=== PATIENT | female | born 1980 | race Caucasian/White ===

== ENCOUNTER 2018-05-10 10:24 | Observation (INO) | payer OTHER ==
[~2018-05-10] VITALS: Ht 172.7 cm; Wt 90.7 kg
--- OUTSIDE RECORDS SUMMARY | 2018-05-10 10:27 | XMS REPORT ---
Author Author [facility] Address Unknown Phone Unavailable Care Team Providers Care Zoo Caretaker Name Role Phone Unavailable Unavailable Payers Payer Name Policy Type Policy Number Effective Date Expiration Date Problems This patient has no known problems. Allergies, Adverse Reactions, Alerts Allergy Name Allergy Type Status Severity Reaction(s) Onset Date Inactive Date Treating Clinician Comments No Known Allergies DA Active U 2018-05-08 00:00:00 Medications This patient has no known medications. Results Test Description Test Time Test Comments Text Results Atomic Results Result Comments D-DIMER 2018-05-08 14:16:00 D-DIMER (test code=DDIMER) 403.00 ng/mLFEU 0-500 Clinical Cut-off value for D- Dimer is 500 ng/mL FEU. Comment: The [employer] D-Dimer assay is intended for use asan aid in the diagnosis of venous thromboembolism (VTE)[deep vein thrombosis (DVT) or pulmonary embolism (PE)].The measurement of D-Dimer should not be used as an aid inthe diagnosis of VTE, in patient with: -Therapeutic dose anticoagulant therapy for >24 hours -Fibrinolytic therapy within previous 7 days -Trauma or surgery within previous 4 weeks -Disseminated malignancies - Aortic aneurysm -Sepsis, severe infections, pneumonia, severe skin infections -Liver cirrhosis - B-TYPE NATRIURETIC [id number] 13:19:00* Test Item Value Reference Range Comments B-TYPE NATRIURETIC PEPTIDE (test code=BNP) 149.77 pgram/mL 0-100 BASIC METABOLIC [id number] 12:56:00* Test Item Value Reference Range Comments SODIUM (test code=NA) 139 mmol/L 136-145 POTASSIUM (test code=K) 4.0 mmol/L 3.5-5.1 CHLORIDE (test code=CL) 108.0 mmol/L 98-107 CARBON DIOXIDE (test code=CO2) 24.0 mmol/L 21-32 ANION GAP (test code=GAP) 11.0 10-20 GLUCOSE (test code=GLU) 89 mg/dL 74-106 BLOOD UREA NITROGEN (test code=BUN) 11 mg/dL 7-18 GLOMERULAR FILTRATION RATE (test code=GFR) > 60 mL/min >=60 Estimated GFR by using Modified MDRD formula.Chronic kidney disease is defined as either kidney damageor GFR <60 mL/min/1.73 m2 for >3 months. CREATININE (test code=CREAT) 0.80 mg/dL 0.55-1.02 Note change in reference range due to change in reagent. BUN/CREATININE RATIO (test code=BUN/CREA) 13.5 10-20 CALCIUM (test code=CA) 8.6 mg/dL 8.5-10.1 HEPATIC FUNCTION [id number] 12:56:00* Test Item Value Reference Range Comments TOTAL PROTEIN (test code=PROT) 7.5 gram/dL 6.4-8.2 ALBUMIN (test code=ALB) 3.3 g/dL 3.4-5.0 GLOBULIN (test code=GLOB) 4.2 gram/dL 2.7-4.2 ALBUMIN/GLOBULIN RATIO (test code=A/G) 0.8 0.75-1.50 BILIRUBIN TOTAL (test code=BILT) 0.20 mg/dL 0.0-1.0 BILIRUBIN DIRECT (test code=BILD) 0.06 mg/dL 0.0-0.20 SGOT/AST (test code=AST) 12 IUnit/L 15-37 SGPT/ALT (test code=ALT) 23 IUnit/L 12-78 ALKALINE PHOSPHATASE TOTAL (test code=ALKP) 72 IUnit/L 45-117 Note change in reference range due to change in reagent. HCG SERUM [id number] 12:56:00* Test Item Value Reference Range Comments HCG SERUM QUAL (test code=HCGQL) NEGATIVE NEGATIVE This HCGQL test is NOT applicable for MALE patients.Check with nurse about probable order error.If Tumor Marker Test needed, nurse should order test "HCGTU"(Test #550.82376) [id number] 12:56:00* Test Item Value Reference Range Comments TROPONIN-I (test code=TROPI) <0.015 ng/mL 0-0.045 BASIC METABOLIC [id number] 12:46:00* Test Item Value Reference Range Comments SODIUM (test code=NA) mmol/L 136-145 POTASSIUM (test code=K) mmol/L 3.5-5.1 CHLORIDE (test code=CL) mmol/L 98-107 CARBON DIOXIDE (test code=CO2) mmol/L 21-32 ANION GAP (test code=GAP) 10-20 GLUCOSE (test code=GLU) mg/dL 74-106 BLOOD UREA NITROGEN (test code=BUN) mg/dL 7-18 GLOMERULAR FILTRATION RATE (test code=GFR) mL/min >=60 CREATININE (test code=CREAT) mg/dL 0.55-1.02 BUN/CREATININE RATIO (test code=BUN/CREA) 10-20 CALCIUM (test code=CA) mg/dL 8.5-10.1 HEPATIC FUNCTION [id number] 12:46:00* Test Item Value Reference Range Comments TOTAL PROTEIN (test code=PROT) gram/dL 6.4-8.2 ALBUMIN (test code=ALB) g/dL 3.4-5.0 GLOBULIN (test code=GLOB) gram/dL 2.7-4.2 ALBUMIN/GLOBULIN RATIO (test code=A/G) 0.75-1.50 BILIRUBIN TOTAL (test code=BILT) mg/dL 0.0-1.0 BILIRUBIN DIRECT (test code=BILD) mg/dL 0.0-0.20 SGOT/AST (test code=AST) IUnit/L 15-37 SGPT/ALT (test code=ALT) IUnit/L 12-78 ALKALINE PHOSPHATASE TOTAL (test code=ALKP) IUnit/L 45-117 HCG SERUM [id number] 12:46:00* Test Item Value Reference Range Comments HCG SERUM QUAL (test code=HCGQL) NEGATIVE NEGATIVE This HCGQL test is NOT applicable for MALE patients.Check with nurse about probable order error.If Tumor Marker Test needed, nurse should order test "HCGTU"(Test #550.51310) [id number] 12:46:00* Test Item Value Reference Range Comments TROPONIN-I (test code=TROPI) ng/mL 0-0.045 BASIC METABOLIC [id number] 12:46:00* Test Item Value Reference Range Comments SODIUM (test code=NA) 139 mmol/L 136-145 POTASSIUM (test code=K) 4.0 mmol/L 3.5-5.1 CHLORIDE (test code=CL) 108.0 mmol/L 98-107 CARBON DIOXIDE (test code=CO2) mmol/L 21-32 ANION GAP (test code=GAP) 10-20 GLUCOSE (test code=GLU) mg/dL 74-106 BLOOD UREA NITROGEN (test code=BUN) mg/dL 7-18 GLOMERULAR FILTRATION RATE (test code=GFR) mL/min >=60 CREATININE (test code=CREAT) mg/dL 0.55-1.02 BUN/CREATININE RATIO (test code=BUN/CREA) 10-20 CALCIUM (test code=CA) mg/dL 8.5-10.1 HEPATIC FUNCTION [id number] 12:46:00* Test Item Value Reference Range Comments TOTAL PROTEIN (test code=PROT) gram/dL 6.4-8.2 ALBUMIN (test code=ALB) g/dL 3.4-5.0 GLOBULIN (test code=GLOB) gram/dL 2.7-4.2 ALBUMIN/GLOBULIN RATIO (test code=A/G) 0.75-1.50 BILIRUBIN TOTAL (test code=BILT) mg/dL 0.0-1.0 BILIRUBIN DIRECT (test code=BILD) mg/dL 0.0-0.20 SGOT/AST (test code=AST) IUnit/L 15-37 SGPT/ALT (test code=ALT) IUnit/L 12-78 ALKALINE PHOSPHATASE TOTAL (test code=ALKP) IUnit/L 45-117 HCG SERUM [id number] 12:46:00* Test Item Value Reference Range Comments HCG SERUM QUAL (test code=HCGQL) NEGATIVE NEGATIVE This HCGQL test is NOT applicable for MALE patients.Check with nurse about probable order error.If Tumor Marker Test needed, nurse should order test "HCGTU"(Test #550.56775) [id number] 12:46:00* Test Item Value Reference Range Comments TROPONIN-I (test code=TROPI) ng/mL 0-0.045 CBC W/O [id number] 12:43:00* Test Item Value Reference Range Comments WHITE BLOOD CELL (test code=WBC) 11.3 K/mm3 4.5-12.5 RED BLOOD CELL (test code=RBC) 4.89 mill/mm3 3.7-5.2 HEMOGLOBIN (test code=HGB) 12.8 gram/dL 11.5-15.5 HEMATOCRIT (test code=HCT) 42.2 % 36.0-46.0 MEAN CELL VOLUME (test code=MCV) 86.3 fL 80-98 MEAN CELL HGB (test code=MCH) 26.2 picogram 27.0-33.0 MEAN CELL HGB CONCETRATION (test code=MCHC) 30.3 gram/dL 33.0-36.0 RED CELL DISTRIBUTION WIDTH (test code=RDW) 14.2 % 11.6-16.2 PLATELET COUNT (test code=PLT) 363 K/mm3 150-450 MEAN PLATELET VOLUME (test code=MPV) 10.9 fL 6.7-11.0 TROPONIN I [id number] 12:26:00* Test Item Value Reference Range Comments TROPONIN I RAPID (test code=TROPIRAP) 0.00 ng/mL <0.08 Please Note New Reference Range 0.00-0.079 ng/mL - Negative>or=0.08 ng/mL - Positive The use of serial sampling and testing protocol is arecommended practice.An elevated troponin level alone is often not sufficient fordiagnosis of myocardial infarction. Troponin results obtained by different assays may vary.Evaluation of the extent of myocardial damage based onincrease of troponin would be valid only if similarmethodology is used. - XR CHEST 1 [id number] 11:51:00 FAX: Ban Fontana MD [phone] [place]: St: REG Name: NOLA WEISS [facility] : [birth year] Age/S: 37/F [address] [facility] Unit #: [id number] Loc: [place] [address] Phys: Ban Fontana MD Acct: [id number] Dis Date: Status: REG ER PHONE #: [phone] Exam Date: 05/08/2018 1148 FAX #: [phone] Reason: CHEST PAIN EXAMS: CPT CODE: [id number] XR CHEST 1 V 50615 HISTORY: Chest pain. COMPARISON: None available. No acute infiltrates, effusion or con gestion is noted. Suboptimal inspiration. Dependent changes. Mild cardiomegaly. IMPRESSION: No acute i nfiltrates, effusion or congestion. at 1151 Reported and signed by: Nicholas Mariscal M.D. CC: Ban Fontana MD Technologist: Rigoberto Diaz RT(R) Trnscrd Date/Time/By: 05/08/2018 (5241) : By: [email or web address] Orig Print D/T: S: 05/08/2018 (8035) PAGE 1 Signed Report
[2018-05-10] MEDS ORDERED: SODIUM CHLORIDE 0.9% 1000ML 1,000 ML IV STA (10:44)
[2018-05-10 11:15] LABS: BASOPHILS % 0.3 % (0.0-1.0); EOSINOPHILS # (AUTO) 0.1 (0.0-0.4); EOSINOPHILS % 1.1 % (0.0-6.0); HEMATOCRIT 42.7 % (34.2-44.1); HEMOGLOBIN 14.5 g/dL (12.0-16.0); LYMPHOCYTES # (AUTO) 1.5 (1.0-3.2); LYMPHOCYTES % 12.5 % (18.0-39.1); MEAN CORPUSCULAR HEMOGLOBIN 27.3 pg (28-32); MEAN CORPUSCULAR VOLUME 80.4 fL (81-99); MONOCYTES # (AUTO) 0.5 (0.2-0.8); MONOCYTES % 3.8 % (4.4-11.3); NEUTROPHILS % 81.9 % (38.7-80.0); PLATELET COUNT 415 x10e3/uL (140-360); RED BLOOD COUNT 5.31 x10e6/uL (3.6-5.1); RED CELL DISTRIBUTION WIDTH 14.7 % (11.7-14.4)
[2018-05-10] MEDS ORDERED: ONDANSETRON HCL INJ 2MG/ML 2ML 2 MG/ML VIAL IV ONE (11:30)
[2018-05-10] MEDS ORDERED: MORPHINE SULFATE INJ 4 MG/ML INJ 1ML IV ONE (11:30)
[2018-05-10 11:54] LABS: CLARITY,URINE CLOUDY (CLEAR); COLOR,URINE YELLOW (YELLOW); KETONES,URINE NEGATIVE (NEGATIVE); LEUKOCYTE ESTERASE ,URINE NEGATIVE (NEGATIVE); NITRITE,URINE POSITIVE (NEGATIVE); PROTEIN,URINE DIPSTICK TRACE (NEGATIVE); URINE UROBILINOGEN 0.2 mg/dL (0.2 - 1)
[2018-05-10 11:55] LABS: BILIRUBIN,URINE NEGATIVE (NEGATIVE); PREGNANCY TEST, URINE NEGATIVE (NEGATIVE)
[2018-05-10 12:00] LABS: BACTERIA,URINE MANY /HPF; EPITHELIAL CELLS,URINE MANY /LPF; RBC,URINE 0-5 /HPF (0-5); WBC,URINE (MAN) 0-5 /HPF (0-5)
[2018-05-10 12:01] LABS: AMORPHOUS SEDIMENT,URINE MODERATE (FEW); MUCUS,URINE FEW (RARE)
[2018-05-10 12:36] LABS: CREATINE KINASE 92 IU/L (29-168)
[2018-05-10 12:57] LABS: ALANINE AMINOTRANSFERASE 20 IU/L (0-55); ALBUMIN 3.8 g/dL (3.5-5.0); ALBUMIN/GLOBULIN RATIO 0.9 (0.8-2.0); ALKALINE PHOSPHATASE 70 IU/L (40-150); ANION GAP 20.3 mmol/L (8-16); BLOOD UREA NITROGEN 10 mg/dL (7-26); BUN/CREATININE RATIO 12 (6-25); CALCIUM 9.3 mg/dL (8.4-10.2); CARBON DIOXIDE 18 mmol/L (22-29); CHLORIDE 104 mmol/L (98-107); CREATININE, SERUM 0.81 mg/dL (0.57-1.11); EST GLOMERULAR FILTRATION RATE > 60 ML/MIN (60-); GLUCOSE 93 mg/dL (74-118); POTASSIUM 5.3 mmol/L (3.5-5.1); SODIUM 137 mmol/L (136-145)
[2018-05-10] MEDS ORDERED: CEFTRIAXONE SOD 1 GM VIAL IV ONE (13:15)
--- NOTE | 2018-05-10 13:40 | Diagnostic Imaging Report ---
EXAM: CT Abdomen and Pelvis WITH contrast INDICATION: Pain COMPARISON: None. TECHNIQUE: Abdomen and Pelvis was scanned utilizing a multidetector helical scanner after administration of IV contrast. Coronal and sagittal reformations were obtained. IV CONTRAST: 100 mL [id number]-370 COMPLICATIONS: None RADIATION DOSE: Total DLP:861 mGy*cm Estimated effective dose: (DLP x 0.015 x size factor) mSv CTDIvol has been reviewed. It is below the limits set by the Radiation Protocol Committee (RPC). Appropriate CT dose reduction techniques were utilized. FINDINGS: Abdomen: Lung Bases: No acute findings. Solid Organs: Several calcified gallstones. Liver, adrenals, kidneys, spleen, and pancreas are unremarkable. Upper GI Tract: Decompressed stomach limits evaluation. No small bowel obstructive changes. Vascularity: No significant vascular calcifications aorta. Lymph Nodes: No suspicious adenopathy. Other: None. Pelvis: Bladder: Unremarkable. Other: Uterus/adnexa grossly unremarkable within limitations of CT evaluation. Colon: No acute colonic findings. Bones: Mild L5-S1 degenerative disc changes. IMPRESSION: 1. Multiple calcified gallstones. While CT evaluation of the gallbladder is suboptimal to ultrasound, there appears to be minimal pericholecystic stranding raising question of cholecystitis. Clinical/laboratory correlation recommended. Signed by: Dr. Ambrose Garcia MD on 05/10/2018 1:37 PM
[2018-05-10] MEDS ORDERED: CEFTRIAXONE SOD 1 GM/NS 50 ML 50 ML IV ONE ×2 (14:00→15:00)
[2018-05-10] MEDS ORDERED: LIDOCAINE VISC 2% SOLN 15 ML UDC PO ONE (14:30)
[2018-05-10] MEDS ORDERED: MAGNESIUM/ALUMINUM/SIMETHICONE 30 ML UDC PO ONE (14:30)
[2018-05-10] MEDS ORDERED: PANTOPRAZOLE 40 MG 10ML VIAL IV ONE (14:30)
[2018-05-10] MEDS: BELLADONNA ALK/PHENOBARBITAL 5 ML UDC PO SCH ×2 (15:35→20:58)
[2018-05-10] MEDS: ONDANSETRON HCL INJ 2MG/ML 2ML 2 MG/ML VIAL IV PRN ×2 (15:38→20:00)
[2018-05-10] MEDS: MORPHINE SULFATE INJ 4 MG/ML INJ 1ML IV PRN ×2 (15:40→20:00)
[2018-05-10] MEDS ORDERED: FENTANYL CITRATE/PF 100MCG/2 ML INJ IV ONE (17:15)
[2018-05-10] MEDS ORDERED: VALSARTAN-HCTZ PO (17:34)
--- NOTE | 2018-05-10 18:10 | NUR ---
RECD PT FROM ER VIA W/C AAOX3 SL TO RT AC PATENT,PAIN LEVEL 3 .
[2018-05-10] MEDS ORDERED: [UNRECOGNIZED DRUG - OTHER] (18:26)
[2018-05-10] MEDS ORDERED: SODIUM CHLORIDE 0.9% 50ML 50 ML ONE (18:41)
[2018-05-10] MEDS ORDERED: IOPAMIDOL 370 MG/ML 200 ML INFUS..BTL INJ ONE (18:41)
[2018-05-10] MEDS: SODIUM CHLORIDE 0.9% 1000ML 1,000 ML IV SCH (19:27)
[2018-05-10 19:30] VITALS: BP 164/69
--- NOTE | 2018-05-10 19:30 | NUR ---
patient recieved awake, alert, lying quietly in bed. vss. ivf continue to infuse without difficulty. admit assessment complete at this time. patient instructed to call for assistance when needed.
[2018-05-10 20:00] VITALS: BP 164/69
--- NOTE | 2018-05-10 20:00 | NUR ---
patient medicated with morphine 4 mg and zofran 4 mg ivp for c/o upper abd pain 10/10. will continue to monitor.
[2018-05-11] VITALS (7 sets, daily range): BP systolic 121–137; BP diastolic 62–93
[2018-05-11] MEDS: MORPHINE SULFATE INJ 4 MG/ML INJ 1ML IV PRN ×6 (00:08→23:40)
[2018-05-11] MEDS: ONDANSETRON HCL INJ 2MG/ML 2ML 2 MG/ML VIAL IV PRN ×6 (00:08→23:40)
[2018-05-11] MEDS: SODIUM CHLORIDE 0.9% 1000ML 1,000 ML IV SCH ×2 (03:12→11:34)
--- NOTE | 2018-05-11 07:19 | Consultation ---
DATE OF CONSULTATION: May 11, 2018 Patient is a 37-year-old female who presents with complaints of epigastric and right upper quadrant abdominal pain that started a few days ago. She has had similar pains previously, but never this severe. She has associated nausea and vomiting. Evaluation has revealed calcified gallstones with inflammation around the gallbladder. There are no symptoms of jaundice. Patient says her pain is slightly better today. PAST MEDICAL HISTORY: Significant for hypertension for which she takes valsartan and hydrochlorothiazide. PAST SURGICAL HISTORY: The only previous surgery is section. ALLERGIES: SHE HAS NO KNOWN ALLERGIES. MEDICATIONS: As listed above. FAMILY HISTORY: Noncontributory. SOCIAL HISTORY: The patient occasionally smokes a cigarette and occasionally drinks alcohol. REVIEW OF SYSTEMS: Is as stated above. She has had no fever. No weight loss. PHYSICAL EXAMINATION GENERAL: The patient is awake, alert and in no distress. VITALS: Were normal. HEENT: Unremarkable. Sclerae are nonicteric. NECK: Supple with no masses. LUNGS: Equal breath sounds are clear bilaterally. CARDIAC: Regular rate and rhythm. Normal S1 and S2 without murmur, S3 or S4. There is no jugular venous distention. ABDOMEN: Soft. There is mild epigastric and right upper quadrant tenderness. There is no mass. There were no signs of peritonitis. No organomegaly. EXTREMITIES: No edema. Pulses were palpable. NEUROLOGIC: Intact. ASSESSMENT: A 37-year-old female with findings suggestive of acute and chronic cholecystitis and cholelithiasis. She would likely benefit from a cholecystectomy, which I will plan to schedule for today. The procedure was explained to the patient including risks, benefits and alternatives. She understands. She has had the opportunity to ask questions. She is aware of the possible need for open surgery. Thank you for asking me to see Ms. Guadalupe. Job#: [id number] WILDA
--- NOTE | 2018-05-11 07:28 | NUR ---
PATIENT SITTING UP IN BED TALKING ON THE PHONE, NO RESPIRATORY DISTRESS OBSERVED. REMAINS NPO FOR A PROCEDURE. BED IN LOWER POSITION, CALL LIGHT AT REACH.
[2018-05-11] MEDS: BELLADONNA ALK/PHENOBARBITAL 5 ML UDC PO SCH ×3 (09:00→21:41)
[2018-05-11] MEDS: CEFTRIAXONE SOD 1 GM/NS 50 ML 50 ML IV SCH (09:29)
--- NOTE | 2018-05-11 11:12 | NUR ---
CONSENT SIGNED FOR A PROCEDURE. IV FLUID IN PROGRESS. CALL LIGHT AT REACH.
--- NOTE | 2018-05-11 12:24 | NUR ---
PATIENT OFF UNIT FOR A PROCEDURE.
[2018-05-11] MEDS ORDERED: BUPIVACAINE 0.25% 30ML SDV INJ ONE (13:06)
[2018-05-11] MEDS ORDERED: MORPHINE SULFATE INJ 4 MG/ML INJ 1ML IV PRN (14:45)
[2018-05-11] MEDS ORDERED: HYDROCODONE/APAP 5MG-325MG TAB PO PRN ×2 (14:45→18:00)
[2018-05-11] MEDS ORDERED: ONDANSETRON HCL INJ 2MG/ML 2ML 2 MG/ML VIAL ONE (15:05)
[2018-05-11] MEDS ORDERED: LIDOCAINE HCL 2% LOCAL INJ 5 ML SDV VIAL INJ ONE (15:05)
[2018-05-11] MEDS ORDERED: DEXAMETHASONE SOD PHOS INJ 4 MG/ML VIAL ONE (15:05)
[2018-05-11] MEDS ORDERED: ATROPINE SULFATE 1 MG/ML VIAL ONE (15:05)
[2018-05-11] MEDS ORDERED: SEVOFLURANE INHAL SOLN 250 ML PEN BTL ONE (15:05)
[2018-05-11] MEDS ORDERED: ROCURONIUM BROMIDE 10 MG/ML 5ML VIAL ONE (15:05)
[2018-05-11] MEDS ORDERED: PROPOFOL IV EMULSION 10 MG/ML 20 ML VIAL ONE (15:05)
[2018-05-11] MEDS ORDERED: KETOROLAC TROMETHAMINE 30 MG/ML VIAL ONE (15:05)
[2018-05-11] MEDS ORDERED: NEOSTIGMINE 5 MG/5ML SYR ONE (15:05)
[2018-05-11] MEDS ORDERED: SUCCINYLCHOLINE 200 MG/10 ML SYR ONE (15:05)
--- NOTE | 2018-05-11 15:46 | NUR ---
PATIENT BACK TO UNIT FROM OR. HAD A LAPAROSCOPIC CHOLECYSTECTOMY, 4 TROCAR SITES DRY AND INTACT TO ABDOMEN. PATIENT C/O ABDOMINAL PAIN, PAIN MEDICATION GIVEN ORDERED. IN BED WITH CALL LIGHT AT REACH. FAMILY MEMBER AT BED SIDE. V/S 98.1-72-18-117/79 AND 97% ON RA.
[2018-05-11] MEDS: DEXTROSE 5%/0.45% SOD CHL 1,000 ML IV SCH (16:08)
--- NOTE | 2018-05-11 16:18 | Operative Report ---
DATE OF PROCEDURE: May 11, 2018 PREOPERATIVE DIAGNOSES 1. Acute cholecystitis. 2. Cholelithiasis. POSTOPERATIVE DIAGNOSES 1. Acute cholecystitis. 2. Cholelithiasis. PROCEDURES 1. Diagnostic laparoscopy. 2. Laparoscopic cholecystectomy. POWER DISTRIBUTION ENGINEER: None. ANESTHESIA: General endotracheal. INDICATIONS AND FINDINGS: The patient is a 37-year-old female who presented with the complaints of severe epigastric and right upper quadrant abdominal pain. Workup revealed probable acute cholecystitis with cholelithiasis. At surgery patient was found to have a gallbladder that was very distended and edematous with a large stone impacting the gallbladder neck. The cystic duct was about 3 mm in diameter. Common bile duct was about 5 mm in diameter. Liver, stomach, lower abdomen all appeared normal. TECHNIQUE: After adequate general endotracheal anesthesia, patient in supine position, the abdomen was prepped and draped in sterile fashion with ChloraPrep solution. Skin in the umbilicus was infiltrated with 1/2 percent Marcaine. Incision was made in the umbilicus. Abdominal wall was elevated, and Veress needle was introduced. Pneumoperitoneum was then created. A 10 mm trocar and cannula was then passed through the umbilical wound. Laparoscopic camera was introduced. Initial laparoscopy revealed the gallbladder very distended and edematous. Liver, stomach, lower abdomen all appeared normal. A 10 mm trocar and cannula was placed in the epigastrium, and two 5 mm trocars and cannulas were placed in the right upper quadrant. These were placed under direct vision. Gallbladder was tense, was decompressed with a needle, contained white bile and some sludge. Fundus was then grasped and retracted superiorly. There were adhesions over the neck and fundus of the gallbladder involving the omentum. These were lysed, staying close to the gallbladder. The gallbladder/cystic duct junction was dissected free. Cystic artery was also dissected free. The neck of the gallbladder was completely dissected free. Cystic artery was divided between hemoclips close to the gallbladder. Cystic duct was also divided between hemoclips with 3 clips being left on the common bile duct side. There was a posterior branch of the cystic artery which was also divided between hemoclips. The gallbladder was then dissected free from the liver using scissors and electrocautery. Once it was entirely free, it was placed into an Endopouch and brought out through the epigastric cannula, contained at least 1 large stone. Gallbladder bed was inspected for hemostasis, which was seen to be adequate. It was irrigated with saline. All fluid aspirated. Inspected for hemostasis, which was seen to be adequate. Instruments and cannulas were removed. Pneumoperitoneum was evacuated. Wounds were then closed. The fascia in the umbilical and the epigastric wound closed with 0 Vicryl. Skin to all wounds closed with tanvir. Sterile dressing was applied to each wound. The patient tolerated the procedure well. Estimated blood loss was 25 mL. There were no complications. All counts were correct. The patient was taken to the recovery room in satisfactory condition. Job#: [id number] EV cc:VAUGHN PATE MD
[2018-05-11] MEDS ORDERED: HYDRALAZINE HCL 20 MG/ML VIAL IV PRN (17:45)
[2018-05-11] MEDS ORDERED: MIDAZOLAM HCL 2 MG/2 ML VIAL ONE (18:17)
[2018-05-11] MEDS ORDERED: FENTANYL CITRATE/PF 100MCG/2 ML INJ ONE (18:17)
--- NOTE | 2018-05-11 19:29 | NUR ---
PT IS RESTING IN BED. NO RESPIRATORY DISTRESS NOTED. BED IN THE LOWEST POSITION, LOCKED, AND CALL LIGHT WITHIN REACH. WILL CONTINUE TO MONITOR.
[2018-05-12] VITALS: BP 112/55
[2018-05-12 00:37] VITALS: BP 137/78
[2018-05-12] MEDS: DEXTROSE 5%/0.45% SOD CHL 1,000 ML IV SCH ×2 (01:10→13:39)
[2018-05-12 04:00] VITALS: BP 113/60
[2018-05-12] MEDS: ONDANSETRON HCL INJ 2MG/ML 2ML 2 MG/ML VIAL IV PRN ×2 (05:24→09:50)
[2018-05-12] MEDS: MORPHINE SULFATE INJ 4 MG/ML INJ 1ML IV PRN ×2 (05:24→09:50)
[2018-05-12 07:00] LABS: BASOPHILS % 0.1 % (0.0-1.0); EOSINOPHILS # (AUTO) 0.1 (0.0-0.4); EOSINOPHILS % 0.7 % (0.0-6.0); HEMATOCRIT 34.3 % (34.2-44.1); HEMOGLOBIN 10.9 g/dL (12.0-16.0); LYMPHOCYTES # (AUTO) 1.5 (1.0-3.2); LYMPHOCYTES % 16.5 % (18.0-39.1); MEAN CORPUSCULAR HEMOGLOBIN 26.8 pg (28-32); MEAN CORPUSCULAR HGB CONC 31.8 g/dL (31-35); MEAN CORPUSCULAR VOLUME 84.5 fL (81-99); MONOCYTES # (AUTO) 0.7 (0.2-0.8); MONOCYTES % 7.7 % (4.4-11.3); NEUTROPHILS # (AUTO) 6.9 (2.1-6.9); NEUTROPHILS % 74.6 % (38.7-80.0); PLATELET COUNT 319 x10e3/uL (140-360); RED BLOOD COUNT 4.06 x10e6/uL (3.6-5.1); RED CELL DISTRIBUTION WIDTH 14.5 % (11.7-14.4)
[2018-05-12 07:25] VITALS: BP 113/73
--- NOTE | 2018-05-12 07:25 | NUR ---
PATIENT IN BED RESTING WITH EYE CLOSED, NO RESPIRATORY DISTRESS OBSERVED. 4 TROCAR SITES DRY AND INTACT TO ABDOMEN, SCD IN PLACE. BED IN LOWER POSITION, CALL LIGHT AT REACH.
[2018-05-12] MEDS: FAMOTIDINE 20 MG TAB PO SCH ×2 (07:52→16:30)
[2018-05-12 08:29] VITALS: BP 113/73
[2018-05-12] MEDS: CEFTRIAXONE SOD 1 GM/NS 50 ML 50 ML IV SCH (09:50)
[2018-05-12] MEDS: BELLADONNA ALK/PHENOBARBITAL 5 ML UDC PO SCH ×2 (09:50→15:54)
--- NOTE | 2018-05-12 11:16 | NUR ---
PATIENT ASSISTED WITH SHOWER AND BACK TO BED. LINENS CHANGED. BED IN LOWER POSITION, CALL LIGHT AT REACH.
[2018-05-12 15:51] VITALS: BP 121/71
--- NOTE | 2018-05-12 19:38 | NUR ---
PT IS RESTING IN BED WITH FAMILY AT BEDSIDE. NO RESPIRATORY DISTRESS NOTED. BED IN THE LOWEST POSITION, LOCKED, AND CALL LIGHT WITHIN REACH. WILL CONTINUE TO MONITOR.
--- NOTE | 2018-05-12 19:53 | NUR ---
PER DR PATE PT CAN BE DISCHARGED.
--- NOTE | 2018-05-12 20:30 | NUR ---
PT WAS WHEELED OF THE UNIT VIA WHEELCHAIR AT 2030 WITH ALL OF HER BELONGS. PT IS A&OX3. NO RESPIRATORY DISTRESS NOTED. DISCHARGE INSTRUCTION WERE GIVEN WITH FOLLOW-UP AND MEDICATION.
--- NOTE | 2018-05-12 23:42 | Discharge Summary ---
ADMITTING DIAGNOSES: 1. Acute calculous cholecystitis. 2. Hypertension. DISCHARGE DIAGNOSES: 1. Acute calculous cholecystitis. 2. Hypertension. BRIEF HISTORY: Ms. Guadalupe is a 37-year-old lady presenting with right upper quadrant abdominal pain with nausea and vomiting. Her CT scan showed gallstones and acute cholecystitis. HOSPITAL COURSE: The patient was admitted to the floor, started on IV antibiotics, ceftriaxone. Was seen by surgery, who took the patient to the OR and did a lap yessenia. Patient tolerated the procedure well. She was kept overnight. She had flatus and was tolerating a regular diet. At the time of discharge, she will be sent home to resume her regular diet. Activity as tolerated. She will resume her home meds for blood pressure and will follow up with her PCP within 2 weeks. VAUGHN PATE MD Job#: [id number]
== END 2018-05-12 20:33 | disposition home or self-care (01) ==
LOC: ER 10:24 → ERHOLD 14:18 → MED/SURG3 17:41
PROVIDERS: ADMIT Internal Medicine; ATTEND Internal Medicine
DX: K80.00 Calculus of gallbladder with acute cholecystitis without obstruction (principal); I10 Essential (primary) hypertension
CPT/HCPCS: 36415 ×3; 47564; 74177; 80053; 81001; 81025; 82550; 82553; 83690; 84132; 84484; 85025 ×2; 88304; 93005; 99284; C9113; G0378 ×3; J0461; J0696 ×3; J1100; J1885; J2001; J2250; J2270 ×3; J2405 ×3; J2704; J7030 ×2; Q9967

== ENCOUNTER 2018-08-09 09:29 | Inpatient (IN) | payer OTHER ==
[~2018-08-09] VITALS: Ht 172.7 cm; Wt 112.9 kg
[~2018-08-09 09:29] MED LIST: VALSARTAN-HCTZ PO; [UNRECOGNIZED DRUG - OTHER]
[2018-08-09] MEDS ORDERED: ACETAMINOPHEN 325 MG TAB PO NR (09:45)
[2018-08-09] MEDS ORDERED: SODIUM CHLORIDE 0.9% 1000ML 1,000 ML IV STA (09:48)
[2018-08-09] MEDS ORDERED: ONDANSETRON HCL INJ 2MG/ML 2ML 2 MG/ML VIAL IV NR (10:00)
[2018-08-09] MEDS ORDERED: MORPHINE SULFATE INJ 4 MG/ML INJ 1ML IV NR (10:15)
[2018-08-09 10:23] LABS: INR 0.97; PARTIAL THROMBOPLASTIN TIME 35.9 seconds (23.8-35.5); PROTHROMBIN TIME 13.4 seconds (11.9-14.5)
[2018-08-09 10:52] LABS: COLOR,URINE YELLOW (YELLOW)
[2018-08-09 10:53] LABS: BILIRUBIN,URINE NEGATIVE (NEGATIVE); CLARITY,URINE CLEAR (CLEAR); KETONES,URINE NEGATIVE (NEGATIVE); LEUKOCYTE ESTERASE ,URINE NEGATIVE (NEGATIVE); NITRITE,URINE NEGATIVE (NEGATIVE); PROTEIN,URINE DIPSTICK NEGATIVE (NEGATIVE); URINE UROBILINOGEN 0.2 mg/dL (0.2 - 1)
[2018-08-09 10:54] LABS: PREGNANCY TEST, URINE NEGATIVE (NEGATIVE)
[2018-08-09 11:07] LABS: BASOPHILS % 0.3 % (0.0-1.0); EOSINOPHILS % 0.2 % (0.0-6.0); HEMATOCRIT 39.9 % (34.2-44.1); HEMOGLOBIN 12.8 g/dL (12.0-16.0); LYMPHOCYTES # (AUTO) 0.9 (1.0-3.2); LYMPHOCYTES % 7.6 % (18.0-39.1); MEAN CORPUSCULAR HEMOGLOBIN 27.4 pg (28-32); MEAN CORPUSCULAR HGB CONC 32.1 g/dL (31-35); MEAN CORPUSCULAR VOLUME 85.4 fL (81-99); MONOCYTES # (AUTO) 0.7 (0.2-0.8); MONOCYTES % 5.7 % (4.4-11.3); NEUTROPHILS # (AUTO) 10.3 (2.1-6.9); PLATELET COUNT 315 x10e3/uL (140-360); RED BLOOD COUNT 4.67 x10e6/uL (3.6-5.1); RED CELL DISTRIBUTION WIDTH 13.8 % (11.7-14.4)
--- NOTE | 2018-08-09 11:12 | Diagnostic Imaging Report ---
RIGHT ANKLE - 3 Images HISTORY: SWELLING, INFECTION , after pedicure COMPARISON: None available. FINDINGS: Bones: No acute displaced fracture. No aggressive osseous lesion. Question of subtle focal demineralization and indistinct cortex at near the base of the medial malleolus on one of the views. Small plantar calcaneal and dorsal calcaneal enthesophytes. Joints: Osseous alignment is within normal limits and the joint spaces are well-maintained. Soft tissues: Nonspecific soft tissue swelling, medial greater than lateral. IMPRESSION: 1. Nonspecific medial soft tissue swelling. 2. Questionable subtle focal demineralization near the base of the medial malleolus, a MRI of the ankle with and without contrast would provide further characterization for osteomyelitis or a nondisplaced fracture in the appropriate setting. Signed by: Dr. John Hernandez D.O., M.M.M. on 08/09/2018 11:08 AM
--- NOTE | 2018-08-09 11:13 | Diagnostic Imaging Report ---
A single frontal view of the chest. HISTORY: RIGHT ANKLE INFECTION COMPARISON: None available. DISCUSSION: Portable technique, limits sensitivity of the exam. Artifact projects at the cardiac silhouette near the apex. Tubes/Lines: None Lungs and pleura: The lungs are well inflated. No evidence of a consolidative pneumonia or pulmonary alveolar edema. No definite pleural effusion or pneumothorax is identified. Heart and mediastinum: The cardiomediastinal silhouette appears unremarkable. Bones and soft tissues: Appear unremarkable, given this limited exam. IMPRESSION: No acute radiographic abnormality. Signed by: Dr. John Hernandez D.O., M.M.M. on 08/09/2018 11:10 AM
[2018-08-09] MEDS: PIPER-TAZ 3.375 GM 50 ML IV SCH ×2 (11:20→18:12)
[2018-08-09 11:32] LABS: BACTERIA,URINE MODERATE /HPF; EPITHELIAL CELLS,URINE MANY /LPF; RBC,URINE 0-5 /HPF (0-5)
[2018-08-09 11:47] LABS: ERYTHROCYTE SEDIMENTATION RATE 25 mm/hr (0-20)
[2018-08-09] MEDS: VANCOMYCIN 1GM/NS 250 ML 250 ML IV SCH ×2 (11:50→20:35)
[2018-08-09 12:01] LABS: ALANINE AMINOTRANSFERASE 27 IU/L (0-55); ALBUMIN 3.5 g/dL (3.5-5.0); ALBUMIN/GLOBULIN RATIO 0.9 (0.8-2.0); ALKALINE PHOSPHATASE 79 IU/L (40-150); ANION GAP 12.8 mmol/L (8-16); BLOOD UREA NITROGEN 13 mg/dL (7-26); BUN/CREATININE RATIO 16 (6-25); CALCIUM 9.4 mg/dL (8.4-10.2); CARBON DIOXIDE 22 mmol/L (22-29); CHLORIDE 104 mmol/L (98-107); CREATININE, SERUM 0.83 mg/dL (0.57-1.11); EST GLOMERULAR FILTRATION RATE > 60 ML/MIN (60-); GLUCOSE 105 mg/dL (74-118); POTASSIUM 3.8 mmol/L (3.5-5.1); SODIUM 135 mmol/L (136-145)
--- NOTE | 2018-08-09 12:18 | NUR ---
PLACED ON AGRICULTURAL ENGINEERING TECHNICIANS. BP RE-CHECKED AND IVF STARTED. UPDATED ON ADMIT RM 202
[2018-08-09] MEDS: SODIUM CHLORIDE 0.9% 1000ML 1,000 ML IV SCH ×2 (12:21→19:50)
--- NOTE | 2018-08-09 12:31 | NUR ---
PT UPDATED ON NEW RM ASSIGNMENT TO 294
[2018-08-09 12:50] VITALS: BP 112/59
--- NOTE | 2018-08-09 12:50 | NUR ---
PATIENT RECEIVED FROM ER PER STRETCHER. ALERT AND ORIENTED X 4. SKIN WARM AND DRY TO TOUCH, RESPIRATION EVEN AND UNLABORED ABDOMEN SOFT AND NON DISTENDED. RIGHT LEG RED, SWOLLEN AND WARM TO TOUCH. PATIENT STATED THAT IT HURT WITH PRESSURE. IV ANTIBIOTIC INFUSING ORDERED. PATIENT ORIENTED TO SURROUNDING. BED IN LOWER POSITION, CALL LIGHT AT REACH. INSTRUCTED TO CALL FOR ASSISTANCE NEEDED.
[2018-08-09 12:59] VITALS: BP 112/59
[2018-08-09] MEDS ORDERED: GADOBENATE DIMEGLUMINE 1 ML IV ONE (13:29)
--- NOTE | 2018-08-09 13:43 | NUR ---
PATIENT OFF UNIT TO RADIOLOGY.
--- NOTE | 2018-08-09 14:49 | Diagnostic Imaging Report ---
TECHNIQUE: Magnetic resonance imaging of the RIGHT ANKLE was performed WITH and WITHOUT injected contrast. Post-contrast images were obtained after intravenous injection of 20 cc of MultiHance. HISTORY: Infection, evaluate for osteomyelitis, abscess, or fracture COMPARISON: Right ankle radiographs August 09, 2018. FINDINGS: LIGAMENTS: Medial Complex: Intact Lateral Complex: Intact, including the tibiofibular ligaments. TENDONS: Medial: Intact, small volume of fluid surrounding the total posterior tibial tendon and trace adjacent to the flexor digitorum longus tendon. Lateral: Intact Anterior: Intact Achilles: Intact BONES: No focal or infiltrative bone marrow replacing abnormality. No acute fracture or osteonecrosis. No osseous erosion. JOINTS: Cartilage: No focal defect involving the tibiotalar joint. Other: Trace nonspecific tibiotalar effusion. SOFT TISSUES: Prominent medial soft tissue edema and hyperemia, centered about the greater saphenous vein. IMPRESSION: 1. Findings suggestive of greater saphenous vein thrombophlebitis, most prominently at the level of the medial malleolus. 2. No osteomyelitis. 3. No acute fracture. Signed by: Dr. John Hernandez D.O., M.M.M. on 08/09/2018 2:46 PM
[2018-08-09] MEDS: ONDANSETRON HCL INJ 2MG/ML 2ML 2 MG/ML VIAL IV PRN ×2 (15:15→20:15)
[2018-08-09] MEDS: MORPHINE SULFATE INJ 4 MG/ML INJ 1ML IV PRN ×2 (15:15→20:14)
--- NOTE | 2018-08-09 15:15 | NUR ---
PATIENT BACK TO UNIT FROM RADIOLOGY. C/O PAIN TO RIGHT ANKLE, PAIN MEDICATION GIVEN ORDERED. WILL CONTINUE MONITOR.
[2018-08-09 16:51] VITALS: BP 116/60
--- NOTE | 2018-08-09 19:28 | NUR ---
Received change of shift report from AM nurse. Walking rounds completed.
[2018-08-09 20:00] VITALS: BP 121/55
--- NOTE | 2018-08-09 23:04 | History and Physical ---
HISTORY OF PRESENT ILLNESS: A 38-ayim-gih-female with past medical history positive for hypertension, came here because after she went to a pedicure ,few days later she noted fever and tenderness and swelling in the right foot. REVIEW OF SYSTEMS: CARDIOVASCULAR: No chest pain or palpitation. RESPIRATORY: No shortness of breath. No cough. GASTROINTESTINAL: No nausea, vomiting, or diarrhea. GENITOURINARY: No frequency. No dysuria. MUSCULOSKELETAL: She has swelling and redness, some tenderness in the right foot. PAST MEDICAL HISTORY: Hypertension. SOCIAL HISTORY: She smokes and drinks occasionally. PHYSICAL EXAMINATION: VITAL SIGNS: Blood pressure 130/59, temperature 96.4, heart rate 87 per minute, respiratory rate 19 per minute, oxygen saturation 98%. HEART : Showed regular rhythm. Normal S1, S2 sound. LUNGS: Clear bilaterally. ABDOMEN: Soft. EXTREMITIES: Show swelling and redness on the medial aspect of the right foot. LABORATORY DATA: BMP shows sodium 135, potassium 3.8, chloride 104, CO2 of 22, BUN 13, creatinine 0.3, glucose 105. On the CBC, white count 89087, hemoglobin 12.8, hematocrit 39.9, platelet count 658,000. PT 13.4, PTT 35.9, INR 0.97. AST 17, ALT 27, total bilirubin 0.5, alkaline phosphatase 79. X-ray showed questionable osteomyelitis on the right foot. Chest x-ray was negative. IMPRESSION: 1. Right foot cellulitis, rule out osteomyelitis. 2. Hypertension. 3. Obesity. TREATMENT AND PLAN: Continue vancomycin 1 g IV twice a day, Zosyn IV daily 3.375 g IV q.6 hours. Continue Zofran 4 mg IV q.4 hours, morphine 4 mg IV q.4 hours. Renewed home medications. Called a Podiatry consult with Dr. Gillespie and we are going to consult Dr. Rivers for Infectious Disease. We are awaiting for the MRI report. MD ROSALBA Mcnulty/LILLY /[id number]
--- NOTE | 2018-08-09 23:40 | NUR ---
Patient resting quitly at this time. Continue monitor.
--- NOTE | 2018-08-09 23:43 | Consultation ---
DATE OF CONSULTATION: REASON FOR CONSULTATION: Lower extremity pain. HISTORY OF PRESENT ILLNESS: The patient who is 38, comes in with redness and swelling in her legs started few days back. The patient had no trauma. The pain is affecting her right ankle. She had redness and swelling. No specific trauma. PAST MEDICAL HISTORY: She denies. PAST SURGICAL HISTORY: Appendectomy and . ALLERGIES: NKDA. SOCIAL HISTORY: There is no smoking, drug abuse, or alcohol abuse. FAMILY HISTORY: Otherwise unremarkable. REVIEW OF SYSTEMS: HEENT: Negative. PULMONARY: Negative. CARDIAC: Negative. RADIOGRAPHS: The patient had an x-ray of her ankle, which showed soft tissue swelling. MEDICATION LIST: She is on vancomycin and Zosyn. PHYSICAL EXAMINATION: GENERAL: She is currently alert, oriented, does not seem to be in acute distress. VITAL SIGNS: Stable. Currently afebrile. HEENT: Normocephalic. Not icteric. NECK: Supple. CHEST: Clear bilateral. HEART: S1, S2. No S3, S4, or murmur. ABDOMEN: Soft. Bowel sounds present. No tenderness. EXTREMITIES: In the right foot, there is erythema and edema. IMPRESSION: Cellulitis of the foot. Concerned about osteo. MRI is ordered. vancomycin. Continue Zosyn. We will see how she will do clinically. We will follow vancomycin trough with recommendations to follow. MD DINA Schwartz/LILLY /[id number]
[2018-08-10] VITALS (8 sets, daily range): BP systolic 102–122; BP diastolic 51–76
[2018-08-10] MEDS: MORPHINE SULFATE INJ 4 MG/ML INJ 1ML IV PRN ×4 (01:12→19:25)
[2018-08-10] MEDS: ONDANSETRON HCL INJ 2MG/ML 2ML 2 MG/ML VIAL IV PRN (01:13)
--- NOTE | 2018-08-10 01:30 | NUR ---
Pt requested more pain meds. Given as ordered by .
[2018-08-10] MEDS: SODIUM CHLORIDE 0.9% 1000ML 1,000 ML IV SCH ×2 (03:50→11:50)
[2018-08-10] MEDS: PIPER-TAZ 3.375 GM 50 ML IV SCH ×4 (05:18→17:35)
[2018-08-10 06:39] LABS: BASOPHILS % 0.3 % (0.0-1.0); EOSINOPHILS # (AUTO) 0.3 (0.0-0.4); EOSINOPHILS % 2.6 % (0.0-6.0); HEMOGLOBIN 10.3 g/dL (12.0-16.0); LYMPHOCYTES # (AUTO) 1.7 (1.0-3.2); LYMPHOCYTES % 17.2 % (18.0-39.1); MEAN CORPUSCULAR HGB CONC 30.3 g/dL (31-35); MEAN CORPUSCULAR VOLUME 89.2 fL (81-99); MONOCYTES % 10.3 % (4.4-11.3); NEUTROPHILS # (AUTO) 6.6 (2.1-6.9); NEUTROPHILS % 69.2 % (38.7-80.0); PLATELET COUNT 263 x10e3/uL (140-360); RED BLOOD COUNT 3.81 x10e6/uL (3.6-5.1); RED CELL DISTRIBUTION WIDTH 14.1 % (11.7-14.4)
--- NOTE | 2018-08-10 06:41 | NUR ---
Patient resting quitly with no c/o at this time. Continue monitor.
[2018-08-10 06:47] LABS: ALANINE AMINOTRANSFERASE 23 IU/L (0-55); ALBUMIN 2.7 g/dL (3.5-5.0); ALBUMIN/GLOBULIN RATIO 0.8 (0.8-2.0); ALKALINE PHOSPHATASE 70 IU/L (40-150); ANION GAP 9.1 mmol/L (8-16); BLOOD UREA NITROGEN 9 mg/dL (7-26); BUN/CREATININE RATIO 10 (6-25); CALCIUM 8.3 mg/dL (8.4-10.2); CARBON DIOXIDE 25 mmol/L (22-29); CHLORIDE 107 mmol/L (98-107); CREATININE, SERUM 0.88 mg/dL (0.57-1.11); EST GLOMERULAR FILTRATION RATE > 60 ML/MIN (60-); GLUCOSE 90 mg/dL (74-118); POTASSIUM 4.1 mmol/L (3.5-5.1); SODIUM 137 mmol/L (136-145)
--- NOTE | 2018-08-10 07:45 | NUR ---
PT UP IN BED ,PAIN LEVEL 4,ICE PACK TO RT ANKLE ,REDNES AND SWELLING NOTED.
[2018-08-10] MEDS: VANCOMYCIN 1GM/NS 250 ML 250 ML IV SCH ×2 (08:29→21:50)
[2018-08-10] MEDS: HOME MEDICATION--PATIENTS OWN PO SCH (09:00)
[2018-08-10] MEDS: NAPROXEN 250 MG TAB PO SCH (17:00)
--- NOTE | 2018-08-10 17:33 | NUR ---
PT UP IN CHAIR ,ICE PACK TO RT ANKLE,PAIN LEVEL 2.
--- NOTE | 2018-08-10 19:10 | NUR ---
Bedside rounds completed with morning nurse. Pt alert and orient to name. Coming from bathroom with walker. c/o 10/10 pain, assisted to elevated right foot with pillows. Call cerda within reach. Bed low and locked. Call cerda within reach.
--- NOTE | 2018-08-10 19:25 | NUR ---
Admin prn morphine in bed for 10/10 pain in right foot. call cerda within reach.
--- NOTE | 2018-08-10 21:39 | Consultation ---
DATE OF CONSULTATION: 08/10/2018 REASON FOR CONSULTATION: Cellulitis of the right ankle with [id number] pain. HISTORY OF PRESENT ILLNESS: This is a pleasant 38-year-old white female, who was seen at bedside, accompanied by boyfriend, having hltopcfc-gb-[id number] pain to the right lower extremity, which started 3 days ago, but specifically got worse after she ate red meat and drank beer on Friday. Prior to that, on the previous Friday, she had a pedicure and she had scraped her calluses of bottom of her feet, was cut by the international flight attendant and cellulitis started. PAST MEDICAL HISTORY: Remarkable for hypertension. SOCIAL HISTORY: She smokes and drinks socially and does not do any type of recreational drug use. PAST SURGICAL HISTORY: Remarkable for cholecystectomy, appendectomy, and two C-sections. ALLERGIES: THE PATIENT DENIES. SHE DOES HAVE SIDE EFFECTS WITH SOME ABDOMINAL PAIN WHEN TAKING PENICILLINS. CURRENT MEDICATIONS: Note listed in the chart including IV Zosyn and vancomycin. FAMILY HISTORY: Noncontributory. REVIEW OF SYSTEMS: CARDIAC: Denies any palpitations or pain. RESPIRATORY: Denies any shortness of breath or productive cough. GASTROINTESTINAL: Denies any diarrhea, vomiting, or problems of voiding. GENITOURINARY: Denies any problems of voiding or hematuria. MUSCULOSKELETAL: Shows pain and swelling to the right ankle when compared to the left. VITAL SIGNS: Afebrile, pulse rate 83, respirations 20, blood pressure 116/65, and O2 saturation 95%. PODIATRIC: Following vasculature, pedal pulses of both the DP and PT are palpable to both lower extremities. NEUROLOGIC: Reveals no loss of protective sensation when utilizing [place] 5.07 monofilament wire. MUSCULOSKELETAL: Shows muscle mass to be asymmetrical, some swelling noted to the right ankle and foot when compared to the left. There is zmttqnvq-bb-xpompf pain upon range of motion. DERMATOLOGIC: Shows open lesion in the plantar aspect of right heel secondary to pedicure. RADIOGRAPHIC DATA: X-rays reviewed, revealing no gas in tissue, cyst, fracture, or malignancy. LABORATORY DATA: Noted as white blood cell count of 12.1, dropping to 9.6 since she has been getting antibiotics; hemoglobin 10.3; and platelet count of 263. INR of 0.97 with blood glucose of 90. ASSESSMENT: Possible gouty arthropathy with cellulitis. PLAN: Uric acid level will be ordered. We will continue IV antibiotics. We will continue to monitor the patient and prescription for Naprosyn 500 mg will be given b.i.d. for the inflammation and pain. JUNE Esparza/LILLY /[id number]
[2018-08-11] VITALS (8 sets, daily range): BP systolic 94–114; BP diastolic 50–70
[2018-08-11] MEDS: MORPHINE SULFATE INJ 4 MG/ML INJ 1ML IV PRN ×3 (04:15→14:45)
[2018-08-11] MEDS: SODIUM CHLORIDE 0.9% 1000ML 1,000 ML IV SCH (06:00)
[2018-08-11] MEDS: PIPER-TAZ 3.375 GM 50 ML IV SCH ×2 (06:30)
--- NOTE | 2018-08-11 06:38 | NUR ---
Pt resting quietly in bed lying supine HOB 45degrees side. RLE pain tolerable at 5/10. No distress noted. Call cerda within reach.
--- NOTE | 2018-08-11 07:30 | NUR ---
PT UP IN CHAIR NO DISTRESS NOTED,PAIN LEVEL 3 ,ICE PACK TO RT FOOT
[2018-08-11] MEDS: NAPROXEN 250 MG TAB PO SCH ×2 (08:28→17:19)
[2018-08-11] MEDS: HOME MEDICATION--PATIENTS OWN PO SCH (09:00)
--- NOTE | 2018-08-11 10:00 | NUR ---
PT IV LEAKING DCD.
--- NOTE | 2018-08-11 10:30 | NUR ---
IV RESTARTED TO RT W 20 GAUGE,BY CHARGE NURSE
[2018-08-11] MEDS: ONDANSETRON HCL INJ 2MG/ML 2ML 2 MG/ML VIAL IV PRN (10:46)
[2018-08-11] MEDS: VANCOMYCIN 1GM/NS 250 ML 250 ML IV SCH (10:46)
[2018-08-11 13:26] LABS: INR 0.89; PROTHROMBIN TIME 12.5 seconds (11.9-14.5)
[2018-08-11 13:27] LABS: PARTIAL THROMBOPLASTIN TIME 34.5 seconds (23.8-35.5)
[2018-08-11] MEDS ORDERED: CEFAZOLIN SOD 1 GM in SODIUM CHLORIDE 0.9% 50ML 50 ML IV SCH (14:00)
[2018-08-11] MEDS ORDERED: CEFAZOLIN SOD 1 GM VIAL IV SCH (14:00)
--- NOTE | 2018-08-11 14:00 | NUR ---
PT IV INFILTRATED ,SPOKE WITH Enrique in radiology,SUSHMA ATTEMPTED TO RESTARTED IV AND WAS UNABLE AFTER 3 STICKS
--- NOTE | 2018-08-11 15:30 | NUR ---
SPOKE WITH DR BROWNING ,DID NOT WANT PICC LINE,DCD IV ANTIBIOTICS AND PAIN MEDICATION.
--- NOTE | 2018-08-11 15:30 | NUR ---
OK TO LEAVE IV OUT
[2018-08-11] MEDS ORDERED: ACETAMINOPHEN 325 MG TAB PO PRN (16:15)
--- NOTE | 2018-08-11 16:26 | Progress Note ---
DATE: 08/11/2018 SUBJECTIVE: The patient seen at bedside, doing somewhat better. Has better range of motion of the right ankle. Decreased pain. Denying any history of fever, chills, nausea, or vomiting. OBJECTIVE: VITAL SIGNS: Afebrile, pulse rate 67, respiration 20, blood pressure 96/52, and O2 saturation 97%. LABS: Noted. Has uric acid level of 3.7. Still cellulitis and pain to the right talotibial joint. Increased skin temperature when compared to contralateral side. Pedal pulses palpable. ASSESSMENT: Cellulitis with possible gouty arthropathy. PLAN: We will continue Naprosyn. Continue IV antibiotics. Continue to monitor the patient. JUNE Esparza/LILLY /[id number]
--- NOTE | 2018-08-11 18:01 | Consultation ---
DATE OF CONSULTATION: 08/10/2018 CHIEF COMPLAINT: Right ankle infection. HISTORY OF PRESENT ILLNESS: The patient is a 38-year-old lady, who reports an approximate 5-day history of increasing pain around her right ankle and foot. She relates that she had a pedicure about a week ago. She started to notice some swelling and pain in her foot a few days later. Over the weekend, she states it became so painful it was difficult to put weight on it. She came to the emergency room yesterday where she was noted to have signs of cellulitis. She was admitted and an Orthopedic consultation was requested. PAST MEDICAL HISTORY: Noncontributory. Please see admission H and P for further details. PHYSICAL EXAMINATION: GENERAL: She is awake and alert and oriented. She is in mild distress. EXTREMITIES: Her right foot and ankle are markedly tender to palpation. There is mild erythema. The tenderness is more localized to the medial aspect than the lateral aspect. There are no puncture wounds or abrasions. There are no draining wounds. She has decreased range of motion in her ankle. She has normal sensation in her toes. LABORATORY STUDIES: Her white blood cell count was 12,000. Her x-rays were unremarkable. An MRI showed soft tissue swelling, but no evidence of a focal fluid collection consistent with an abscess. IMPRESSION: Cellulitis, right foot and ankle. PLAN: The patient is admitted for IV antibiotics. I explained to the patient and her that, at times, this could potentially localize into an abscess. She will continue with IV antibiotics and elevation for now. We will continue to follow. If she develops a localized abscess, we will schedule her for incision and drainage. That is not necessary at this time. Thank you for the consultation. King Recinos MD DR/LILLY /[id number]
--- NOTE | 2018-08-11 18:13 | NUR ---
DR MARY HERE ORDERS WRITTEN,PT UP IN BED PAIN LEVEL 3,RT FOOT ELEVATED.
[2018-08-11] MEDS: CEPHALEXIN 500 MG CAP PO SCH (21:03)
[2018-08-11] MEDS: ENOXAPARIN SODIUM INJ 100 MG/ML SYR SC SCH (21:03)
[2018-08-12] VITALS (8 sets, daily range): BP systolic 105–131; BP diastolic 65–76
[2018-08-12 06:26] LABS: BASOPHILS % 0.4 % (0.0-1.0); EOSINOPHILS # (AUTO) 0.4 (0.0-0.4); EOSINOPHILS % 5.4 % (0.0-6.0); HEMOGLOBIN 10.5 g/dL (12.0-16.0); LYMPHOCYTES # (AUTO) 1.6 (1.0-3.2); LYMPHOCYTES % 19.9 % (18.0-39.1); MEAN CORPUSCULAR HEMOGLOBIN 27.5 pg (28-32); MEAN CORPUSCULAR HGB CONC 31.8 g/dL (31-35); MEAN CORPUSCULAR VOLUME 86.4 fL (81-99); MONOCYTES # (AUTO) 0.6 (0.2-0.8); MONOCYTES % 7.8 % (4.4-11.3); NEUTROPHILS # (AUTO) 5.3 (2.1-6.9); NEUTROPHILS % 66.1 % (38.7-80.0); PLATELET COUNT 286 x10e3/uL (140-360); RED BLOOD COUNT 3.82 x10e6/uL (3.6-5.1); RED CELL DISTRIBUTION WIDTH 13.8 % (11.7-14.4)
[2018-08-12 06:32] LABS: ALANINE AMINOTRANSFERASE 19 IU/L (0-55); ALBUMIN 2.6 g/dL (3.5-5.0); ALBUMIN/GLOBULIN RATIO 0.8 (0.8-2.0); ALKALINE PHOSPHATASE 81 IU/L (40-150); ANION GAP 10.2 mmol/L (8-16); BLOOD UREA NITROGEN 13 mg/dL (7-26); BUN/CREATININE RATIO 11 (6-25); CALCIUM 8.9 mg/dL (8.4-10.2); CARBON DIOXIDE 24 mmol/L (22-29); CHLORIDE 112 mmol/L (98-107); CREATININE, SERUM 1.17 mg/dL (0.57-1.11); EST GLOMERULAR FILTRATION RATE 52 ML/MIN (60-); GLUCOSE 95 mg/dL (74-118); POTASSIUM 4.2 mmol/L (3.5-5.1); SODIUM 142 mmol/L (136-145)
--- NOTE | 2018-08-12 06:56 | NUR ---
RECEIVED PATIENT RESTING IN BED. NO ACUTE DISTRESS NOTED. CALL LIGHT WITHIN REACH. BED IN THE LOWEST POSITION.
--- NOTE | 2018-08-12 07:07 | NUR ---
Report given to oncoming nurse,walking round done.
[2018-08-12] MEDS: HOME MEDICATION--PATIENTS OWN PO SCH (08:50)
[2018-08-12] MEDS: NAPROXEN 250 MG TAB PO SCH ×2 (08:53→16:24)
[2018-08-12] MEDS: CEPHALEXIN 500 MG CAP PO SCH ×3 (08:53→22:24)
[2018-08-12] MEDS: ENOXAPARIN SODIUM INJ 100 MG/ML SYR SC SCH ×2 (08:53→22:24)
[2018-08-12] MEDS: HYDROCODONE/APAP 7.5MG-325MG 1 EA TAB PO PRN ×3 (08:53→22:33)
[2018-08-12] MEDS ORDERED: ACETAMINOPHEN 325 MG TAB PO PRN (10:15)
--- NOTE | 2018-08-12 15:11 | Progress Note ---
DATE: 08/12/2018 SUBJECTIVE: The patient seen at bedside, doing somewhat better, still having some pain to the right ankle joint area. Denies any history of fever, chills, nausea, or vomiting. OBJECTIVE: VITALS: Afebrile, pulse rate 62, respirations 18, blood pressure 118/73, O2 saturation 98%. Extremities: Positive edema still to the right lower extremity. Decreased cellulitis. There is decreased pain upon range of motion, still painful upon direct palpation. LABORATORY DATA: White blood cell count 8.03 with a platelet count of 286, hemoglobin 10.5. ASSESSMENT: Capsulitis, resolving cellulitis with gouty arthropathy. PLAN: Continue Naprosyn 500 mg b.i.d. Continue current medications. We will continue to follow. The patient instructed to drink a lot of water. JUNE Esparza/LILLY /[id number]
[2018-08-12] MEDS: FLUCONAZOLE 100 MG TAB PO SCH (16:06)
[2018-08-12] MEDS ORDERED: DICLOFENAC SOD 1% GEL 100 GM TUBE TP SCH (17:00)
--- NOTE | 2018-08-12 19:30 | NUR ---
REPORT GIVEN TO ONCOMING NURSE, WALKING ROUNDS DONE. PATIENT IS RESTING IN RECLINER. NO ACUTE DISTRESS NOTED. CALL LIGHT WITHIN REACH. BED IN THE LOWEST POSITION.
--- NOTE | 2018-08-12 19:54 | NUR ---
PT IS RESTING IN BED IN THE RECLINER. NO RESPIRATORY DISTRESS NOTED. BED IN THE LOWEST ROOM, LOCKED, AND CALL LIGHT WITHIN REACH. WILL CONTINUE TO MONITOR.
[2018-08-13] VITALS: BP 126/76
[2018-08-13 04:00] VITALS: BP 118/65
--- NOTE | 2018-08-13 07:00 | NUR ---
RECEIVED PATIENT RESTING IN BED. RESPIRATIONS EVEN AND UNLABORED, NO ACUTE DISTRESS NOTED. DENIES PAIN OR DISCOMFORT. CALL LIGHT WITHIN REACH. BED IN THE LOWEST POSITION.
[2018-08-13 07:10] VITALS: BP 126/93
[2018-08-13 07:59] VITALS: BP 126/93
[2018-08-13] MEDS: HOME MEDICATION--PATIENTS OWN PO SCH (09:00)
[2018-08-13] MEDS: CEPHALEXIN 500 MG CAP PO SCH (09:40)
[2018-08-13] MEDS: FLUCONAZOLE 100 MG TAB PO SCH (09:40)
[2018-08-13] MEDS: NAPROXEN 250 MG TAB PO SCH (09:41)
[2018-08-13] MEDS: ENOXAPARIN SODIUM INJ 100 MG/ML SYR SC SCH (09:41)
[2018-08-13 11:26] VITALS: BP 143/80
--- NOTE | 2018-08-13 12:28 | Consultation ---
DATE OF CONSULTATION: 08/11/2018 HISTORY OF PRESENT ILLNESS: Cassidy Guadalupe is a 38-year-old white female referred to me for greater saphenous vein thrombophlebitis involving the right ankle. The patient claims that she had gone for toenails, subsequently started having pain and redness, subsequently admitted. The patient had an MRI of the right ankle, which suggested right saphenous vein thrombophlebitis. SOCIAL HISTORY: Noncontributory. FAMILY HISTORY: Noncontributory. ALLERGIES: REPORTED NONE. MEDICATIONS: At this time: 1. Naproxen. 2. Lovenox. 3. Tylenol. 4. Cephalexin. REVIEW OF SYSTEMS: HEENT: Normal. CARDIAC: Normal. RESPIRATORY: Normal. GI: Normal. : Normal. MUSCULOSKELETAL: Normal except for obesity. NEUROENDOCRINE: Normal. EXTREMITIES: Cellulitis of the right ankle. PHYSICAL EXAMINATION: GENERAL: Morbidly obese female. No palpable adenopathy. HEART: Within normal limits. LUNGS: Clear. BREASTS: Deferred. ABDOMEN: Obese. RECTAL AND VAGINAL: Deferred. CENTRAL NERVOUS SYSTEM: Essentially normal. EXTREMITIES: Cellulitis of the right ankle. LAB: Shows hemoglobin of 10.3, hematocrit 34, white count of 9600, and platelets of 263,000. Sodium 137, potassium 4.1, chloride 107, CO2 25, BUN 9, creatinine 0.88. Bilirubin 0.3, SGOT 14, SGPT 23, alkaline phosphatase 70. IMAGING: MRI of the right ankle shows greater saphenous vein thrombophlebitis. IMPRESSION: 1. Greater saphenous vein thrombophlebitis of the right lower extremity. 2. Leukocytosis (12.01). 3. Iron deficiency anemia (10.3 and 34) MCHC low at 30.3. 4. High C-reactive protein (67.2). 5. Hypoproteinemia (5.9). 6. Hypoalbuminemia (2.7). 7. Hyperglobulinemia (3.8). 8. Cellulitis of the right foot after pedicure. 9. Morbid obesity. PLAN, COMMENTS, AND SUGGESTIONS: 1. Saphenous vein is in the superficial venous system; however, this could also lead to a deep vein thrombosis. Subsequently, the patient is suggested venous Doppler of the right lower extremity. If found to have deep vein thrombosis, the patient should be anticoagulated. 2. No anticoagulation unless the venous Doppler is positive. 3. Continue antibiotics. 4. Anemia of this patient should be followed up closely. I will be more than happy to follow this patient as outpatient on discharge if the attending would call and make an appointment with me for the anemia. 5. Venous Doppler was done, the results are available today. This did not show any deep vein thrombosis. The patient could be discharged on antibiotics. Giovani Betancourt MD MAQ/MODL /[id number] cc: MD King Mcnulty MD Jorge L Cuza, JUNE
--- NOTE | 2018-08-13 13:57 | NUR ---
Received DC from MD, patient is in stable condition. Denies pain or discomfort. No IV access at the time of discharge. Discharge teaching provided to patient, she verbalized understanding. Discharge folder and personal items on hand. Patient accompanied to private auto via wheelchair by staff.
--- NOTE | 2018-08-13 15:54 | Progress Note ---
DATE: 08/13/2018 SUBJECTIVE: The patient is seen at bedside today, doing better, better range of motion. Denying any history of fever, chills, nausea, or vomiting. OBJECTIVE: VITAL SIGNS: Afebrile, pulse rate 70, respirations 20, blood pressure 126/93, and O2 saturation 97%. LABS: White blood cell count of 8.03, hemoglobin 10.5 with a platelet count of 286. Decreased cellulitis of the right foot, better range of motion. Still pain to the medial and lateral gutter of the right talotibial joint. ASSESSMENT: Resolving capsulitis with cellulitis with gouty arthropathy, getting better. PLAN: Will continue to take Naprosyn and apply diclofenac gel at home. Okay to be discharged if okay with Dr. Gallegos and Dr. Villeda. The patient is directed to follow up within one week in the office. The patient is given office information on this date. Also instructed to drink a lot of water. JUNE Esparza/LILLY /[id number]
--- NOTE | 2018-09-24 03:50 | Discharge Summary ---
CHIEF COMPLAINT: Fever, tenderness and swelling in the right foot. FINAL DIAGNOSES: Cellulitis in the right lower extremity and swelling in the right ankle. DISPOSITION: Home. CONSULTANTS: Dr. Rivers, Infectious Disease, regarding lower extremity pain. CHIEF COMPLAINT: With his evaluation, his impression was cellulitis of the foot, concerned about osteo. MRI will be ordered. Agree with vancomycin and continued Zosyn. Dr. Gillespie was following as well from the Podiatry standpoint due to cellulitis of the right ankle. His assessment was possibly gouty arthropathy with cellulitis. Requested monitoring uric acid level. Agree with the antibiotics. The patient also was started on Naprosyn 500 mg b.i.d. Orthopedic with Dr. Recinos. Continuing with issues right ankle infection, led to an Orthopedic evaluation of cellulitis of the right foot and ankle. Agree with current treatment. He states that if the patient develops a localized abscess, we will be scheduling the patient for an I and D, but this is not necessary at this time. Final human capital consultant, Dr. Betancourt, Hematology regarding issues of greater saphenous vein thrombophlebitis involving the right ankle and with his review, his impression was greater saphenous vein thrombophlebitis of the right lower extremity. He states that the saphenous vein is in the superficial venous system; however, this could also lead to a deep venous thrombosis. Subsequently, the patient is suggested to undergo venous Doppler of the right lower extremity and then found to have a DVT, the patient should be anticoagulated. The patient on the Med-Surg floor on a regular diet, receiving vancomycin and piperacillin, also given morphine for pain. Laboratory studies were being reviewed as well. Undergoing consultants with Dr. Rivers, agreement with vancomycin and Zosyn. Cultures were pending from the ankle. Continues to have right ankle cellulitis, right ankle swelling, and ankle pain. Her antibiotics were changed to Ancef. Lovenox was added for DVT prophylaxis with a concern of venous thrombophlebitis. Urine cultures were returning negative. Blood cultures were returning negative. White cell counts were showing to be stable. She underwent venous Doppler, which was unremarkable for DVT. Lovenox was then discontinued. Dr. Rivers was ordering Keflex to be given for 3 weeks. She reached her potential recovery and she was able to be discharged home from the facility and she was released on 08/13/2018 in stable condition. IMAGING: Chest shows no acute radiographic abnormality. Ankle x-ray routine showing nonspecific medial soft tissue swelling, questionable subtle focal demineralization of the base of the medial malleolus. Ankle MRI shows findings suggestive of greater saphenous vein thrombophlebitis, most prominently at the level of the medial malleolus. No osteomyelitis. No acute fracture. Lower extremity Doppler on the right side shows no evidence of venous thrombosis. Urine culture showing Beena albicans. Blood cultures were negative. LABORATORY STUDIES: Show initial CBC; white cell count 12,000, H and H 12.8 and 39.9, and platelets were stable. Followup CBC shows a normal white cell count, H and H trended down to 10.3 and 34.0, final study 10.5 and 33.0. Urinalysis was showing 6 to 10 wbc's by high-power field, moderate amount of bacteria. Chemistries shows electrolytes to be normal. BUN and creatinine were normal. Glucose was normal. Followup chemistries shows uric acid of 3.7. C-reactive protein was at 114. Final glucose 95. The patient did well underwent discharge plan and was able to be discharged home in stable condition. IVs were discontinued. The patient will continue on p.o. antibiotics per Dr. Rivers. The patient will continue current diet. We will follow up with PCP in 7 to 10 days. No equipments or supplies are necessary. No drains or [place] was needed. Activity as directed by me as well as by Dr. Rivers and Dr. Gillespie. The patient will continue on valsartan/hydrochlorothiazide one tablet p.o. daily, Keflex 500 mg t.i.d. for 7 days. If the patient develops any negative recurrence of the ankle, recontact in PCP or Podiatry. Dictated by ALEJANDRA Dial Vincent Villeda MD CC/MODL /[id number]
== END 2018-08-13 14:00 | disposition home or self-care (01) | DRG 300 ==
LOC: ER 09:29 → ERHOLD 12:12 → MED/SURG3 12:34
DX: I80.01 Phlebitis and thrombophlebitis of superficial vessels of right lower extremity (principal); L03.115 Cellulitis of right lower limb; I80.9 Phlebitis and thrombophlebitis of unspecified site; I10 Essential (primary) hypertension; E66.01 Morbid (severe) obesity due to excess calories; Z68.37 Body mass index [BMI] 37.0-37.9, adult; D50.9 Iron deficiency anemia, unspecified; E77.8 Other disorders of glycoprotein metabolism; R77.1 Abnormality of globulin; E88.09 Other disorders of plasma-protein metabolism, not elsewhere classified; M10.9 Gout, unspecified
CPT/HCPCS: 36415; 71045; 80053; 80202; 81001; 81025; 81241; 81400; 83605; 83735; 84550; 85025; 85303; 85306; 85379; 85610; 85651; 85730; 86140; 87040; 87086; 93971; 99284; J0690; J1650; J2270; J2405; J2543; J3370; J7030

== ENCOUNTER → 2018-09-08 | Outpatient (CLI) | payer OTHER ==
--- NOTE | 2018-09-08 16:20 | Diagnostic Imaging Report ---
Examination: Single AP view of the chest. COMPARISON: 08/09/2018 INDICATION: PICC placement DISCUSSION: Right upper extremity PICC has been placed. The tip projects over the low superior vena cava. Lungs are clear without consolidation or effusion. Normal cardiomediastinal contour. No acute osseous abnormality. IMPRESSION: Right upper extremity PICC, appropriately positioned as above. Clear lungs. Signed by: Dr. King Ballard M.D. on 09/08/2018 4:16 PM
== END ==
LOC: DX 14:57
PROVIDERS: ATTEND Internal Medicine Infectious Disease
DX: L03.115 Cellulitis of right lower limb (principal)
CPT/HCPCS: 36569; 71045